=== PATIENT | female | born 1945 | race Hispanic/Latino ===

== ENCOUNTER 2022-07-17 06:26 | Inpatient (IN) | payer MEDICARE ==
--- NOTE | 2022-07-13 11:26 | Anesthesia Consultation ---
Anesthesia Consult and Med Hx Date of service: 07/17/22 - Airway Anesthetic Teeth Evaluation: Good, Bridges (upper right) ROM Head & Neck: Adequate Mental/Hyoid Distance: Inadequate Mallampati Class: Class I Intubation Access Assessment: Probably Good - Pulmonary Exam CTA: Yes - Cardiac Exam Cardiac Exam: RRR - Pre-Operative Health Status ASA Pre-Surgery Classification: ASA3 Proposed Anesthetic Plan: General Nerve Block: adductor canal - Pulmonary Hx Smoking: No Hx Asthma: Yes COPD: Yes (normal preop CXR) Hx Sleep Apnea: Yes (prior diagnosis but has since had neg sleep study) - Cardiovascular System Hx Hypertension: Yes Hx Heart Attack/AMI: No Hx Percutaneous Transluminal Coronary Angioplasty (PTCA): No Hx Cardia Arrhythmia: No (RBBB on EKG, chronic per patient) - Central Nervous System 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 Preop medical eval on chart reviewed. Congenital heart disease mentioned on eval without further description; patient denies and states has had multiple prior cardiac studies including TTEs and stress tests which have been normal. >4 mets functioncal capacity, no signs/symptoms ACS or decompensated CHF. 06/2022 labs: H/H 12/37, plt 353, BUN/ruby software developer 16/0.73, K 4.5.
[~2022-07-17 06:26] MED LIST: ACETAMINOPHEN 500 MG TAB PO SCH; LACTATED RINGERS 1,000 ML IV SCH; PREGABALIN 25 MG CAP PO SCH; fentaNYL 100 MCG/2 ML INJ IV PRN
[2022-07-17] MEDS ORDERED: VANCOMYCIN/NS 1 GM/250 ML 1 GM/250 ML BAG IV NR (07:00)
[2022-07-17] MEDS ORDERED: PREGABALIN 75 MG CAP PO SCH (07:00)
[2022-07-17] MEDS ORDERED: ONDANSETRON 4 MG/2 ML INJ IV PRN ×2 (07:24→12:00)
[2022-07-17] MEDS ORDERED: HYDROmorphone 0.5 MG/0.5 ML INJ IV PRN (07:24)
--- NOTE | 2022-07-17 07:26 | Anesthesia Day of Surgery ---
Anesthesia Day of Surgery - Day of Surgery Patient Examined: Yes Patient H&P Reviewed: Yes Patient is NPO: Yes
[2022-07-17] MEDS ORDERED: dexAMETHasone 4 MG/ML VIAL ONE (07:28)
[2022-07-17] MEDS ORDERED: BUPIVACAINE/PF (0.25%) 2.5 MG/ML 30 ML VIAL INFILTRATI ONE (07:28)
[2022-07-17] MEDS ORDERED: NEOMY 40 MG/POLYMYXIN B 200,000 UNITS/ML (GU) AMPULE IR ONE ×2 (07:28→09:35)
[2022-07-17] MEDS ORDERED: MORPHINE 10 MG/1 ML INJ ONE (07:29)
[2022-07-17] MEDS ORDERED: BUPIVACAINE/PF (0.5%) 5 MG/1 ML 30 ML VIAL INFILTRATI ONE (07:29)
[2022-07-17] MEDS ORDERED: methylPREDNISolone ACETATE 40 MG/1 ML INJ ONE (07:29)
[2022-07-17] MEDS ORDERED: VANCOMYCIN 1000 MG INJ ONE (07:30)
[2022-07-17] MEDS ORDERED: propofoL 200 MG/20 ML VIAL IV ONE (07:30)
[2022-07-17] MEDS ORDERED: SODIUM CHLORIDE 0.9% 50 ML ONE (07:30)
[2022-07-17] MEDS ORDERED: TRANEXAMIC ACID 1,000 MG/10 ML ONE (07:31)
[2022-07-17] MEDS ORDERED: LIDOCAINE MPF (2%) 20 MG/1 ML VIAL 5 ML ONE (07:45)
[2022-07-17] MEDS ORDERED: fentaNYL 100 MCG/2 ML INJ ONE (07:45)
[2022-07-17] MEDS ORDERED: MORPHINE 4 MG/1 ML INJ IV PRN (07:50)
[2022-07-17] MEDS ORDERED: SODIUM CHLORIDE 0.9% 1000 ML 1,000 ML IV SCH (08:00)
[2022-07-17] MEDS ORDERED: oxyCODONE 5 MG TAB PO PRN (09:00)
[2022-07-17] MEDS ORDERED: GLYCOPYRROLATE 0.4 MG/2 ML INJ ONE (09:06)
[2022-07-17] MEDS ORDERED: SODIUM CHLORIDE P/F VIAL 10 ML 30 ML ONE (09:22)
[2022-07-17] MEDS ORDERED: SODIUM CHLORIDE 0.9% P/F 10 ML VIAL INFILTRATI ONE (09:33)
[2022-07-17] MEDS ORDERED: SODIUM CHLORIDE 0.9% 50 ML IVPB IV ONE (09:33)
[2022-07-17] MEDS ORDERED: SODIUM CHLORIDE 0.9% IRRIG SOLN 2000 ML IR ONE (09:35)
[2022-07-17] MEDS ORDERED: MORPHINE 10 MG/1 ML INJ IM ONE (09:36)
[2022-07-17] MEDS ORDERED: methylPREDNISolone ACETATE 40 MG/1 ML INJ INTRA-ARTI ONE (09:37)
[2022-07-17] MEDS ORDERED: SODIUM CHLORIDE 0.9% IRR 1,500 ML BOTTLE IR ONE (09:37)
[2022-07-17] MEDS ORDERED: WATER FOR IRRIG STERILE 1,500 ML BOTTLE IR ONE (09:37)
[2022-07-17] MEDS ORDERED: traMADol 50 MG TAB PO PRN (10:00)
[2022-07-17] MEDS ORDERED: dexAMETHasone 20 MG/5 ML VIAL ONE (10:07)
[2022-07-17] MEDS: CLINDAMYCIN 600 MG/50 mL 600 MG/50 ML BAG IV SCH ×2 (10:12→18:14)
--- NOTE | 2022-07-17 10:50 | Post Operative Note ---
Date of procedure: 07/17/22 Pre-op diagnosis: right knee degenerative joint disease Post-op diagnosis: same Findings: severe left knee degenerative joint disease, valgus knee deformity. Procedure: Right total knee replacement Anesthesia: GETA, other (Nerve block for postoperative pain control) Surgeon: KAYLA SZYMANSKI Branch Operations Manager: MAIK JHA Estimated blood loss: minimal Pathology: none Condition: stable Disposition: PACU
--- NOTE | 2022-07-17 10:56 | Operative Report ---
Operative Report Operative Report: Patient Name: Kathryn Magana Date of : 1945 Date of Surgery: 07/17/2022 Pre-Operative Diagnosis: Right knee degenerative joint disease Post-Operative Diagnosis: Right knee degenerative joint disease Procedure: Right total knee replacement Surgeon: Josh Justice DO Assistants: Sera Atkinson PA-C EBL: 50cc Complications: None Anesthesia: GETA, plus regional nerve block for post-operative pain control Implants: Medacta GMK Sphere size 1+ femur, size 2 tibia, 14 mm CS polyethylene insert, size 2 patella Tourniquet Time: 79 minutes Indications: This is a 77-year-old female who presented with worsening right knee pain since 2009. Pain is worse with weight bearing. Patient had dif ficulty ambulating, using stairs because of the pain. Patient had tried nonoperative management including physical therapy/home exercises, joint injections, anti-inflammatory medications, activity modifications, ambulating with assistive devices without any lasting pain relief. Patient lives alone and is independent. The pain in her knees was making it more difficult for the patient to remain independent. Past medical history includes hypothyroidism, hypertension, GERD, stroke-on Plavix. Patient elected to undergo right total knee replacement. Patient was met in the preoperative holding area where the risk, benefits, alternatives to surgery were explained to the patient in detail. Risks include but are not limited to infection, bleeding, neurovascular injury, soft tissue injury, infection, need for further surgery, need for revision surgery, fracture, dislocation, pain, stiffness, loss of limb, loss of life. Informed consent was obtained after all questions were thoroughly answered. Procedure: Patient was placed supine on the operating room table and all bony prominences were well-padded. The right lower extremity was prepped and draped in the usual sterile fashion. A timeout was performed by all members of the operating room team. An Esmarch bandage was used to wrap the right lower extremity and the tourniquet was inflated to 250 mmHg. A midline incision was made over the right knee. Sharp dissection was used to go through the skin and the subcutaneous fat. Medial and lateral fasciocutaneous flaps were then elevated. Using electrocautery a medial parapatellar arthrotomy was then performed. Upon inspection of the knee joint there was severe osteoarthritis in the medial, lateral and patellofemoral compartments. An anteromedial release was performed on the proximal tibia anterior to the midsagittal plane. The ACL and the PCL as well as the meniscal remnants were then removed. An opening reamer was then used to open up the distal femoral canal. An intramedullary jaylon was placed approximately 10 cm up the femoral canal. The distal cutting jig and block were then secured to the distal femur. Using an oscillating saw the distal femoral resection was then performed. Using calipers we measured the thickness of the cut distal medial and lateral femoral condyles. Taking into account cartilage loss and the saw kerf we made sure that the amount of resection equaled the thickness of our implant. The distal cutting block was removed. A femoral sizer was used to measure the size of the femoral implant. Once we had the appropriate size we secured the 4-in-1 cutting block to the distal femur using 2 bone screws. We then made our medial and lateral posterior femoral condylar cuts. Again we used a caliper to measure the thickness of our cuts while taking into account cartilage loss and saw kerf, thickness equaled that of the implant. Next, using the oscillating saw to make the anterior femoral cut as well as the anterior and posterior chamfer cuts. Next we turned our attention to the proximal tibia. We then secured the extra medullary tibial cutting jig to the leg. We then matched the [place] slope of the proximal tibia with the guide. We also made sure that the tibial cutting guide was parallel to the articular surface taking into account any cartilage wear and bone loss. Using the 8 mm stylus at the base of the tibial spines on the medial and lateral side we then adjusted the tibial guide to the proper resection depth. We secured the proximal tibial cutting jig to the proximal tibial bone using 3 pins. An oscillating saw was then used to make our proximal tibial resection. Next using a laminar technical spec the knee joint was opened up in 90 degrees of flexion. Using a 0.5 inch curved osteotome the posterior osteophytes were removed from both the posterior medial distal femur as well as posterior lateral distal femur. The meniscal remnants were then removed. Next the tibia was anteriorly subluxed and a size 2 tibial guide was then placed in the appropriate amount of rotation parallel to the rotational axis of the tibia of the [place] knee. Tibial guide was secured to the proximal tibia using 2 pins. The tibia was then drilled and punched in the proper rotation. Trial components were then placed on the tibia as well as the femur. The knee was taken through the full range of motion and found to be stable. The knee was able to be flexed to 135 degrees and extension to 0 degrees. There is no varus or valgus laxity with the knee in full extension. The knee was flexed to 90 degrees and again varus and valgus stress was applied. There was no gapping of the medial side with the knee 90 degrees of flexion, the lateral side had approximately 3 mm of gapping which was consistent with a kinematics of the [place] knee joint. The patella was also tracking well within the trochlear groove with no lateral tilt or subluxation. The patella was then everted and cut down to 14 mm using the patellar cutting guide. 3 holes were drilled into the patella and the trial button was placed. Again the knee was taken through the full range of motion with good patella tracking. At this point we were satisfied with the overall range of motion the stability of the patella tracking as well as the knee. All trials were then removed. The real components were opened. The knee was copiously irrigated with antibiotic saline and then dried. A local anesthetic cocktail was then injected into the posterior capsule as well as the surrounding deep tissues of the knee joint. 2 bags of cement were mixed. Once the cement was in a doughy state the real components were cemented into place starting with the tibia followed by the femur and then the patella. All excess cement was then removed using curettes from around the implants. Once the cement had completely hardened the knee was irrigated again with diluted Betadine mixed with normal saline. The knee was then copiously irrigated with normal saline using pulsatile lavage. The tourniquet was let down. There was no active bleeding. Electrocautery was used throughout the case to maintain meticulous hemostasis. The arthrotomy was then closed in flexion in a watertight fashion using #1 Ethibond suture in an interrupted fashion. The arthrotomy was then reinforced with a #1 stratafix PDS suture. The deep fascial layer was closed with 0 Vicryl. The subcutaneous layers were closed with 2-0 Vicryl and the subcuticular layer was closed with 3- 0 Monocryl. The wound was then covered with an occlusive dressing. The operative lower extremity was wrapped in an Agapito wrap from the foot all the way up to the proximal thigh. The sponge and needle count were correct in the case. The patient was then awakened by the anesthesia team and taken to the recovery room in stable condition. The patient's total knee arthroplasty was performed using a calipered kinematically aligned technique.
[2022-07-17] MEDS: HYDROmorphone 0.5 MG/0.5 ML INJ IV PRN ×3 (11:40→12:20)
--- NOTE | 2022-07-17 12:35 | XRay Report ---
RIGHT KNEE 2 VIEW(S) INDICATION / CLINICAL INFORMATION: s/p right total knee replacement COMPARISON: None available. FINDINGS: Knee arthroplasty has been placed with satisfactory postoperative radiographic appearance. Signer Name: Raoul Rehman MD Signed: 07/17/2022 12:30 PM Workstation Name: [employer]
--- NOTE | 2022-07-17 16:01 | Post Anesthesia Evaluation ---
- Post Anesthesia Evaluation Patient Participated: Yes Airway Patent: Yes Stable Respiratory Function: Yes Nausea/Vomiting: No Temp > 96.8F: Yes Pain Manageable: Yes Adequeate Hydration: Yes Anesthesia Complications: No Block Receding Appropriately: Yes Patient on Ventilator: No
[2022-07-17] MEDS: MORPHINE 2 MG/1 ML INJ IV PRN (18:10)
[2022-07-17] MEDS: ACETAMINOPHEN 325 MG TAB PO SCH ×2 (18:32→22:47)
[2022-07-17] MEDS: DOCUSATE SODIUM 100 MG CAP PO SCH (22:48)
[2022-07-18] MEDS: MORPHINE 2 MG/1 ML INJ IV PRN ×3 (03:54→23:58)
[2022-07-18] MEDS ORDERED: SUMAtriptan SUCCINATE 50 MG TAB PO PRN (03:57)
[2022-07-18] MEDS: ACETAMINOPHEN 325 MG TAB PO SCH ×3 (03:59→20:29)
[2022-07-18] MEDS: DOCUSATE SODIUM 100 MG CAP PO SCH ×3 (04:39→21:02)
[2022-07-18] MEDS: SUMAtriptan SUCCINATE 50 MG TAB PO PRN (05:58)
[2022-07-18 06:21] LABS: Hematocrit 28.4 % (30.3-42.9); Hemoglobin 9.8 gm/dl (10.1-14.3)
[2022-07-18 06:36] LABS: Blood Urea Nitrogen 11 mg/dL (7-17); Calcium 7.4 mg/dL (8.4-10.2); Hemolysis Index 1
[2022-07-18 06:41] LABS: BUN/Creatinine Ratio 18
[2022-07-18] MEDS: CLOPIDOGREL 75 MG TAB PO SCH (10:03)
[2022-07-18] MEDS ORDERED: ALUM-MAG HYDROXIDE-SIMETHICONE 200-200-20MG/5ML ORAL LIQD 30 ML PO PRN (13:13)
[2022-07-18] MEDS ORDERED: ONDANSETRON 4 MG/2 ML INJ IV PRN (13:22)
[2022-07-18] MEDS ORDERED: METOCLOPRAMIDE 10 MG TAB PO PRN (13:22)
[2022-07-18] MEDS ORDERED: NALOXONE 0.4 MG/1 ML INJ IV PRN ×2 (13:22)
--- NOTE | 2022-07-18 13:31 | Progress Note ---
Assessment and Plan 77 year old female s/p right Total knee replacement POD#1. -Patient is having difficulty with pain control and nausea. Added Phenergan to help with nausea as Zofran was not effective. Also increased dose of oxycodone to help with pain. -Medical consult placed for hospitalist to help with postoperative medical management -Plavix restarted today, SCDs -Weightbearing as tolerated -Continue physical therapy -Acute blood loss anemia, expected after major surgery -hemoglobin is 9.8 today. Vitals are stable, patient is asymptomatic. We will continue to monitor. -Indications for admission: Poor pain control, slow progress with physical therapy, increased risk of bleeding due to being on blood thinners - plavix, ASA 3 -Discharge plan to home on July 19, 2022 Subjective Date of service: 07/18/22 Principal diagnosis: s/p right total knee replacement Interval history: Patient seen and examined at bedside. Patient complains of nausea and headaches (has a history of migraines). Her knee pain is 6/10 currently. Patient was able to get out of bed with PT yesterday and earlier this morning to ambulate to her room door and back. Patient is having difficulty eating due to the nausea. Denies any fevers or chills. No other complaints at this time. Objective Vital signs: Vital Signs - 12hr 07/18/22 07/18/22 06:03 08:17 Temperature 98.7 F Pulse Rate 69 Respiratory 18 Rate Blood Pressure 158/74 O2 Sat by Pulse 98 98 Oximetry Narrative Exam: RLE: Dressings C/D/I. Ankle PF/DF/EHL motor intact. L 4-S1 SILT. (+) DP Pulse. Weight bearing status: full - Allied Health Allied health notes reviewed: PT - Labs CBC & BMP: 07/18/22 05:58 07/18/22 05:58 Labs: Abnormal lab results 07/18/22 07/18/22 Range/Units 05:58 05:58 Hgb 9.8 L (10.1-14.3) gm/dl Hct 28.4 L (30.3-42.9) % Glucose 115 H (65-100) mg/dL Calcium 7.4 L (8.4-10.2) mg/dL
[2022-07-18] MEDS: PROMETHAZINE 12.5 MG/10 ML ORAL LIQD PO PRN (15:08)
[2022-07-18] MEDS: oxyCODONE 5 MG TAB PO PRN ×2 (16:03→21:03)
[2022-07-18] MEDS ORDERED: ALBUTEROL 8.5 GM MDI INHALATION IH PRN (20:44)
--- NOTE | 2022-07-18 20:44 | Consultation ---
History of Present Illness - Reason for Consult Consult date: 07/18/22 Medical management Requesting physician: KAYLA SZYMANSKI - History of Present Illness 77 YO Female with OA, DJD, Asthma, COPD, HTN, CVA , Hypothyroidism, SIMEON, BrCa S/P Mastectomy. Consult placed to Dr. Szymanski for medical management. Patient seen and evaluated upon arrival to her room. Patient resting comfortably. Patient had fever, chills, chest pain, palpitation, shortness of breath, recent contact, known exposure to COVID-19. No reported nursing events. Patient appears to be at baseline level of cognition and function. Past History Past Medical History: arthritis, COPD, hypertension, hypothyroidism, stroke, other (See HPI) Past Surgical History: total knee replacement Social history: . denies: smoking, alcohol abuse, prescription drug abuse, IV drug use Family history: diabetes. denies: hypertension Medications and Allergies Allergies Allergy/AdvReac Type Severity Reaction Status Date / Time aspirin Allergy Shortness Verified 07/11/22 16:59 of Breath paclitaxel Allergy Unknown Verified 07/11/22 17:03 paroxetine [From Paxil] Allergy Unknown Verified 07/18/22 15:16 procaine Allergy Unknown Verified 07/11/22 17:10 theophylline Allergy Vomiting Verified 07/11/22 17:01 midazolam [From Versed] AdvReac MIGRAINES Verified 07/11/22 17:00 nortriptyline AdvReac DOES NOT Verified 07/11/22 17:03 METABOLIZE-CAUSES TOXIC LEVELS Penicillins AdvReac GI UPSET , Verified 07/11/22 17:01 ULCERS Home Medications Medication Instructions Recorded Confirmed Last Taken Type ALPRAZolam [Xanax TAB] 0.5 mg PO TID 07/11/22 07/11/22 07/17/22 History Albuterol Sulfate [Proventil Hfa] 2 puff IH QID PRN 07/11/22 07/18/22 Unknown History Alendronate Sodium [Fosamax] 70 mg PO QWEEK 07/11/22 07/11/22 07/16/22 History Armodafinil [Nuvigil] 250 mg PO DAILY 07/11/22 07/11/22 07/16/22 History AtorvaSTATin [Lipitor] 20 mg PO QHS 07/11/22 07/11/22 07/16/22 History Azelastine HCl 2 spr NS QHS 07/11/22 07/18/22 07/16/22 History Azelastine HCl [Azelastine HCl 1 drop OU BID 07/11/22 07/18/22 07/16/22 History 0.05%] Butalb/Acetaminophen/Caffeine 1 cap PO Q6HR PRN 07/11/22 07/11/22 Unknown History [Fioricet 50-300-40 mg CAP] Calcium Carbonate [Calcium] 600 mg PO DAILY 07/11/22 07/17/22 07/06/22 History Celecoxib [celeBREX] 200 mg PO DAILY 07/11/22 07/11/22 07/16/22 History Clopidogrel [Plavix] 75 mg PO QDAY 07/11/22 07/11/22 Unknown History Ezetimibe [Zetia] 10 mg PO DAILY 07/11/22 07/11/22 07/16/22 History Fluticasone/Vilanterol [Breo 1 each IH DAILY 07/11/22 07/11/22 07/16/22 History Ellipta 100-25 Mcg INH] Fosinopril Sodium 20 mg PO QDAY 07/11/22 07/11/22 07/16/22 History Levothyroxine [Synthroid] 25 mcg PO QAM 07/11/22 07/11/22 07/17/22 History Montelukast [Singulair] 10 mg PO QPM 07/11/22 07/11/22 07/16/22 History Multivit-Min/Iron/Folic/Lutein 1 each PO DAILY 07/11/22 07/11/22 07/06/22 History [Centrum Silver Women Tablet] Omeprazole 40 mg PO DAILY 07/11/22 07/11/22 07/17/22 History Prochlorperazine Maleate 5 mg PO PRN PRN 07/11/22 07/11/22 07/16/22 History SUMAtriptan succinate [SUMAtriptan 100 mg PO PRN PRN 07/11/22 07/17/22 07/17/22 03:00 History Succinate] Vitamin E 400 unit PO DAILY 07/11/22 07/11/22 07/06/22 History traZODone [Desyrel] 50 mg PO QHS 07/11/22 07/11/22 07/16/22 History Duloxetine HCl [Cymbalta] 60 mg PO QPM 07/18/22 07/18/22 07/16/22 History Triamcinolone Acetonide [Nasacort 2 spr NS QAM 07/18/22 07/18/22 Unknown History SPRAY] Active Meds: Active Medications Acetaminophen (Acetaminophen 325 Mg Tab) 650 mg PO Q8H [facility] Last Admin: 07/18/22 20:29 Dose: Not Given Al Hydrox/Mg Hydrox/Simethicone (Alum-Mag Hydroxide-Simethicone [id number]/5ml Oral Liqd 30 Ml) 30 ml PO Q4H PRN PRN Reason: Indigestion Clopidogrel Bisulfate (Clopidogrel 75 Mg Tab) 75 mg PO QDAY [facility] Last Admin: 07/18/22 10:03 Dose: 75 mg Docusate Sodium (Docusate Sodium 100 Mg Cap) 100 mg PO BID [facility] Last Admin: 07/18/22 10:03 Dose: 100 mg Sodium Chloride (Nacl 0.9% 1000 Ml) 1,000 mls @ 42 mls/hr IV DIRECT [facility] Last Admin: 07/18/22 07:27 Dose: 42 mls/hr Metoclopramide HCl (Metoclopramide 10 Mg Tab) 10 mg PO Q6H PRN PRN Reason: Nausea And Vomiting Morphine Sulfate (Morphine 2 Mg/1 Ml Inj) 1 mg IV Q4H PRN PRN Reason: Pain , Severe (7-10) Last Admin: 07/18/22 10:03 Dose: 1 mg Naloxone HCl (Naloxone 0.4 Mg/1 Ml Inj) 0.1 mg IV Q2MIN PRN PRN Reason: Res Rate </= 8 or 02 SAT < 92% Ondansetron HCl (Ondansetron 4 Mg/2 Ml Inj) 4 mg IV Q8H PRN PRN Reason: Nausea And Vomiting Last Admin: 07/18/22 10:07 Dose: 4 mg Oxycodone HCl (Oxycodone 5 Mg Tab) 2.5 mg PO Q4H PRN PRN Reason: Pain, Moderate (4-6) Oxycodone HCl (Oxycodone 5 Mg Tab) 5 mg PO Q4H PRN PRN Reason: Pain , Severe (7-10) Last Admin: 07/18/22 16:03 Dose: 5 mg Promethazine HCl (Promethazine 12.5 Mg/10 Ml Oral Liqd) 12.5 mg PO Q6H PRN PRN Reason: Nausea And Vomiting Last Admin: 07/18/22 15:08 Dose: 12.5 mg Sodium Chloride (Sodium Chloride 0.9% 10 Ml Flush Syringe) 10 ml IV PRN PRN PRN Reason: LINE FLUSH Last Admin: 07/18/22 03:55 Dose: 10 ml Sumatriptan Succinate (Sumatriptan Succinate 50 Mg Tab) 100 mg PO BID PRN PRN Reason: Migraine Headache Last Admin: 07/18/22 05:58 Dose: 100 mg Tramadol HCl (Tramadol 50 Mg Tab) 50 mg PO Q6H PRN PRN Reason: Pain, Moderate (4-6) Review of Systems Constitutional: no weight loss, no weight gain, no fever, no chills Ears, nose, mouth and throat: no ear pain, no tinnitis, no nasal congestion Breasts: no change in shape, no mass Cardiovascular: no chest pain, no orthopnea, no rapid/irregular heart beat, no edema Respiratory: no cough, no cough with sputum, no shortness of breath Gastrointestinal: no abdominal pain, no vomiting, no constipation, no change in bowel habits Genitourinary Female: no pelvic pain, no flank pain, no dysuria, no urinary frequency Rectal: no pain, no incontinence, no bleeding Musculoskeletal: no neck stiffness, no neck pain, no shooting arm pain, no low back pain, no shooting leg pain Integumentary: no rash, no redness, no sores, no wounds Neurological: no head injury, no transient paralysis, no weakness Psychiatric: no anxiety, no hypersomnia, no change in libido Endocrine: no cold intolerance, no heat intolerance, no polydipsia, no polyuria, no weight change Hematologic/Lymphatic: no easy bruising Allergic/Immunologic: no wheezing Exam - Constitutional Vitals: Temp Pulse Resp BP Pulse Ox 98.7 F 69 18 158/74 98 07/18/22 06:03 07/18/22 06:03 07/18/22 06:03 07/18/22 06:03 07/18/22 08:17 General appearance: Present: no acute distress, well-nourished - EENT Eyes: Present: PERRL ENT: hearing intact, clear oral mucosa - Neck Neck: Present: supple, normal ROM - Respiratory Respiratory effort: normal Respiratory: bilateral: CTA - Cardiovascular Heart Sounds: Present: S1 & S2. Absent: rub, click - Extremities Extremities: pulses symmetrical, No edema Peripheral Pulses: within normal limits - Abdominal General gastrointestinal: Present: soft, non-tender, non-distended, normal bowel sounds Female genitourinary: Present: normal - Integumentary Integumentary: Present: clear, warm, dry - Musculoskeletal Musculoskeletal: gait normal, strength equal bilaterally - Psychiatric Psychiatric: appropriate mood/affect, intact judgment & insight - Neurologic Neurologic: CNII-XII intact, moves all extremities Results - Labs CBC & Chem 7: 07/18/22 05:58 07/18/22 05:58 Labs: Abnormal lab results 07/18/22 07/18/22 Range/Units 05:58 05:58 Hgb 9.8 L (10.1-14.3) gm/dl Hct 28.4 L (30.3-42.9) % Glucose 115 H (65-100) mg/dL Calcium 7.4 L (8.4-10.2) mg/dL Assessment and Plan - Patient Problems (1) Hypothyroidism Current Visit: Yes Status: Acute Plan to address problem: Resume prehospital Synthroid therapy, supportive care, (2) Hypertension Current Visit: Yes Status: Acute Qualifiers: Hypertension type: primary hypertension Qualified Code(s): I10 - Essential (primary) hypertension Plan to address problem: Monitor blood pressure every shift, continue medical management. (3) Mild intermittent asthma Current Visit: Yes Status: Acute Qualifiers: Asthma complication type: uncomplicated Qualified Code(s): J45.20 - Mild intermittent asthma, uncomplicated Plan to address problem: Bronchodilator therapy as clinically indicated, supportive care. Pulse oximetry as clinically indicated. Supplemental oxygen. (4) Advance care planning Current Visit: Yes Status: Acute Plan to address problem: Disease education data, care plan discussed, diagnosis discussed, +30 minutes. (5) Preventative health care Current Visit: Yes Status: Acute Plan to address problem: Patient counseled regarding home safety, compliance with surgeon's instructions, compliance and follow-up with outpatient primary care physician for all age and risk factor proper screening test. +30 minutes.
[2022-07-18] MEDS ORDERED: ALBUTEROL 2.5 MG/3 ML NEBU IH PRN (21:36)
[2022-07-19] MEDS: PROMETHAZINE 12.5 MG/10 ML ORAL LIQD PO PRN (00:06)
[2022-07-19] MEDS: ACETAMINOPHEN 325 MG TAB PO SCH ×2 (04:47→12:17)
[2022-07-19 05:21] LABS: Hematocrit 32.8 % (30.3-42.9); Hemoglobin 11.2 gm/dl (10.1-14.3)
[2022-07-19 05:32] LABS: Blood Urea Nitrogen 8 mg/dL (7-17); Calcium 8.7 mg/dL (8.4-10.2); Hemolysis Index 0
[2022-07-19] MEDS: SUMAtriptan SUCCINATE 50 MG TAB PO PRN (05:32)
[2022-07-19 05:49] LABS: BUN/Creatinine Ratio 16
[2022-07-19] MEDS ORDERED: BUDESONIDE 0.5 MG/2 ML NEBU IH SCH (08:00)
[2022-07-19] MEDS ORDERED: ARFORMOTEROL 15 MCG/2 ML NEBU IH SCH (08:00)
[2022-07-19] MEDS ORDERED: NON-FORMULARY EACH (Calcium Carbonate [Calcium] 600 MG Tablet) PO SCH (10:00)
[2022-07-19] MEDS ORDERED: ARMODAFINIL 250 MG PO SCH (10:00)
[2022-07-19] MEDS ORDERED: FOSINOPRIL SODIUM 20 MG PO SCH (10:00)
[2022-07-19] MEDS ORDERED: LEVOTHYROXINE 25 MCG TAB PO SCH (10:00)
[2022-07-19] MEDS ORDERED: CALCIUM CARBONATE 1250 MG TAB PO SCH (10:00)
[2022-07-19] MEDS ORDERED: CELECOXIB 200 MG CAP PO SCH (10:00)
[2022-07-19] MEDS ORDERED: NON-FORMULARY EACH (Fluticasone/Vilanterol [Breo Ellipta 100-25 Mcg Inh] 1 EACH Blst.W.Dev IH SCH (10:00)
[2022-07-19] MEDS ORDERED: LISINOPRIL 20 MG TAB PO SCH (10:00)
[2022-07-19 12:13] VITALS: BP 172/97
[2022-07-19] MEDS: DOCUSATE SODIUM 100 MG CAP PO SCH (12:16)
[2022-07-19] MEDS: ALPRAZolam 0.5 MG TAB PO SCH ×2 (12:17→13:34)
[2022-07-19] MEDS: CLOPIDOGREL 75 MG TAB PO SCH (12:17)
--- NOTE | 2022-07-19 13:22 | Progress Note ---
Assessment and Plan Assessment and Plan - Patient Problems (1) Hypothyroidism Current Visit: Yes Status: Acute Plan to address problem: Synthroid therapy, supportive care, (2) Hypertension Current Visit: Yes Status: Acute Qualifiers: Hypertension type: primary hypertension Qualified Code(s): I10 - Essential (primary) hypertension Plan to address problem: Monitor blood pressure every shift, continue medical management. (3) Mild intermittent asthma Current Visit: Yes Status: Acute Qualifiers: Asthma complication type: uncomplicated Qualified Code(s): J45.20 - Mild intermittent asthma, uncomplicated Plan to address problem: Bronchodilator therapy as clinically indicated, supportive care. Pulse oximetry as clinically indicated. Supplemental oxygen. (4) Advance care planning Current Visit: Yes Status: Acute Plan to address problem: Disease education data, care plan discussed, diagnosis discussed, +30 minutes. (5) Preventative health care Current Visit: Yes Status: Acute Plan to address problem: Patient counseled regarding home safety, compliance with surgeon's instructions, compliance and follow-up with outpatient primary care physician for all age and risk factor proper screening test. +30 minutes. Subjective Date of service: 07/19/22 Principal diagnosis: s/p right total knee replacement Interval history: 77 YO Female with OA, DJD, Asthma, COPD, HTN, CVA , Hypothyroidism, SIMEON, BrCa S/P Mastectomy. Consult placed to Dr. Justice for medical management. Patient seen and evaluated upon arrival to her room. Patient resting comfortably. Patient had fever, chills, chest pain, palpitation, shortness of breath, recent contact, known exposure to COVID-19. No reported nursing events. Patient appears to be at baseline level of cognition and function. 07/19/22 Post op doing well. Probable discharge today Objective - Constitutional Vitals: Vital Signs - 12hr 07/19/22 07/19/22 07/19/22 05:54 10:00 10:54 Temperature 98.7 F Pulse Rate 71 Pulse Rate [ 85 Anterior Bilateral Throughout] Respiratory 20 Rate Respiratory 19 Rate [Anterior Bilateral Throughout] Blood Pressure 170/90 O2 Sat by Pulse 93 95 Oximetry 07/19/22 11:55 Temperature 98.5 F Pulse Rate 86 Pulse Rate [ Anterior Bilateral Throughout] Respiratory 20 Rate Respiratory Rate [Anterior Bilateral Throughout] Blood Pressure 172/97 O2 Sat by Pulse 92 Oximetry General appearance: Present: no acute distress, well-nourished - EENT Eyes: PERRL, EOM intact ENT: hearing intact, clear oral mucosa Ears: bilateral: normal - Neck Neck: supple, normal ROM - Respiratory Respiratory effort: normal Respiratory: bilateral: CTA - Breasts Breasts: normal - Cardiovascular Heart rate: 78 Rhythm: regular Heart Sounds: Present: S1 & S2. Absent: gallop, rub Extremities: pulses intact, No edema, normal color, Full ROM - Gastrointestinal General gastrointestinal: Present: soft, non-tender, non-distended, normal bowel sounds - Genitourinary Female genitourinary: deferred, normal - Integumentary Integumentary: clear, warm, dry - Musculoskeletal Musculoskeletal: 1, strength equal bilaterally - Neurologic Neurologic: moves all extremities - Psychiatric Psychiatric: memory intact, appropriate mood/affect, intact judgment & insight - Allied health notes Allied health notes reviewed: nursing, case management - Labs CBC & Chem 7: 07/19/22 04:27 07/19/22 04:27 Labs: Abnormal lab results 07/19/22 Range/Units 04:27 Sodium 136 L (137-145) mmol/L Chloride 97.6 L (98-107) mmol/L Creatinine 0.5 L (0.6-1.2) mg/dL Glucose 106 H (65-100) mg/dL
[2022-07-19] MEDS ORDERED: NON-FORMULARY EACH (Duloxetine Hcl [Cymbalta] 60 MG Capsule.Dr) PO SCH (18:00)
[2022-07-19] MEDS ORDERED: DULoxetine 30 MG CAP PO SCH (22:00)
[2022-07-20] MEDS ORDERED: LEVOTHYROXINE 25 MCG TAB PO SCH (06:00)
--- NOTE | 2022-07-20 21:16 | Discharge Summary ---
Providers - Providers Date of Admission: 07/17/22 07:50 Date of discharge: 07/20/22 Attending physician: KAYLA JUSTICE DO 07/17/22 07:50 Consult to Case Management [CONS] Routine Services Needed at Discharge: Physical Therapy Notified:: ANGELO Physical Therapy Evaluation and Treat [CONS] Routine Comment: right total knee replacement. WBAT Reason For Exam: post op therapy 07/17/22 11:09 Consult to Physician [CONS] Routine Comment: Consulting Provider: FRANKY KC Physician Instructions: Reason For Exam: post-op medical management Primary care physician: ALEX CALIXTO MD Hospitalization Condition: Stable Hospital course: Subjective Date of service: 07/20/22 Principal diagnosis: s/p right total knee replacement Interval history: 77 YO Female with OA, DJD, Asthma, COPD, HTN, CVA , Hypothyroidism, SIMEON, BrCa S/P Mastectomy. Consult placed to Dr. Justice for medical management. Patient seen and evaluated upon arrival to her room. Patient resting comfortably. Patient had fever, chills, chest pain, palpitation, shortness of breath, recent contact, known exposure to COVID-19. No reported nursing events. Patient appears to be at baseline level of cognition and function. 07/19/22 Post op doing well. Probable discharge today Home health PT and OT Assessment and Plan - Patient Problems (1) Hypothyroidism Current Visit: Yes Status: Acute Plan to address problem: Synthroid therapy, supportive care, (2) Hypertension Current Visit: Yes Status: Acute Qualifiers: Hypertension type: primary hypertension Qualified Code(s): I10 - Essential (primary) hypertension Plan to address problem: Monitor blood pressure every shift, continue medical management. (3) s/p TKA Physical therapy and Occupational Therapy at home (4) Advance care planning Current Visit: Yes Status: Acute Plan to address problem: Disease education data, care plan discussed, diagnosis discussed, +30 minutes. (5) Preventative health care Current Visit: Yes Status: Acute Plan to address problem: Patient counseled regarding home safety, compliance with surgeon's instructions, compliance and follow-up with outpatient primary care physician for all age and risk factor proper screening test. +30 minutes. Disposition: 01 HOME / SELF CARE / HOMELESS Final Discharge Diagnosis (Prints w/discharge instructions): S/p TKA. Hypothyroidism. Hypertension Time spent for discharge: 30 minutes - Discharge Diagnoses (1) Hypertension Status: Acute Qualifiers: Hypertension type: primary hypertension Qualified Code(s): I10 - Essential (primary) hypertension (2) Hypothyroidism Status: Acute (3) S/P total knee arthroplasty Status: Acute Core Measure Documentation - Palliative Care Palliative Care/ Comfort Measures: Not Applicable - Core Measures Any of the following diagnoses?: none Exam - Constitutional Vitals: Temp Pulse Resp BP Pulse Ox 98.5 F 86 20 172/97 92 07/19/22 11:55 07/19/22 11:55 07/19/22 11:55 07/19/22 11:55 07/19/22 11:55 General appearance: Present: no acute distress, well-nourished - EENT Eyes: Present: PERRL ENT: hearing intact, clear oral mucosa - Neck Neck: Present: supple, normal ROM - Respiratory Respiratory effort: normal Respiratory: bilateral: CTA - Cardiovascular Heart rate: 78 Rhythm: regular Heart Sounds: Present: S1 & S2. Absent: rub, click - Extremities Extremities: pulses symmetrical, No edema Peripheral Pulses: within normal limits - Abdominal General gastrointestinal: Present: soft, non-tender, non-distended, normal bowel sounds Female genitourinary: Present: normal - Integumentary Integumentary: Present: clear, warm, dry - Musculoskeletal Musculoskeletal: gait normal, strength equal bilaterally - Psychiatric Psychiatric: appropriate mood/affect, intact judgment & insight - Neurologic Neurologic: CNII-XII intact, moves all extremities Plan Activity: no restrictions Diet: low salt Follow up with: KAYLA JUSTICE DO [Staff Physician] - 14 Days LEBLANC-ALEX NAVARRETE MD [Primary Care Provider] - 7 Days
[2022-07-23] MEDS ORDERED: ALENDRONATE SODIUM 70 MG TAB PO SCH (07:00)
== END 2022-07-19 15:55 | disposition home health service (06) | DRG 470 ==
LOC: OR 06:26 → OBSVTOIN 07:50 → 3A 07:50 → EDSTATUS 08:00 → 3A 09:48
PROVIDERS: ADMIT Orthopaedic Surgery; ATTEND Orthopaedic Surgery
PROC: 0SRC0J9 Replacement of Right Knee Joint with Synthetic Substitute, Cemented, Open Approach (ICD-10-PCS; principal; 2022-07-17)
DX: M17.11 Unilateral primary osteoarthritis, right knee (principal); Z20.822 Contact with and (suspected) exposure to COVID-19; J45.20 Mild intermittent asthma, uncomplicated; I10 Essential (primary) hypertension; E03.9 Hypothyroidism, unspecified; J44.9 Chronic obstructive pulmonary disease, unspecified; Z86.73 Personal history of transient ischemic attack (TIA), and cerebral infarction without residual deficits
CPT/HCPCS: 36415; 64450; 80048; 85014; 85018; 86850; 86900; 86901; 88304; 88311; 94640; G0378; J1815; J3490; J7502; C1713; C1776; J0696; J1030; J1100; J1170; J2270; J2405; J2704; J3010; J3370; J7030; J7120; Q0169; U0003